=== PATIENT | male | born 1940 | race Hispanic/Latino ===

== ENCOUNTER 2017-04-07 17:49 | Inpatient (IN) | payer MEDICARE ==
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
[2017-04-07 19:34] LABS: BASO # 0.1 K/uL (0.0-0.2); BASO % 0.7 % (0.0-2.0); EOS # 0.1 K/uL (0.0-0.7); EOS % 0.6 % (0.0-4.0); HEMATOCRIT 38.4 % (35.0-51.0); LYMPH # 0.8 K/uL (1.0-4.3); LYMPH % 7.1 % (20.0-40.0); MEAN CELL VOLUME 90.6 fL (80.0-94.0); MEAN CORPUSCULAR HEMOGLOBIN 30.3 pg (27.0-31.0); MEAN CORPUSCULAR HGB CONC 33.4 g/dL (33.0-37.0); MEAN PLATELET VOLUME 8.7 fL (7.2-11.7); MONO # 1.9 K/uL (0.0-0.8); MONO % 17.4 % (0.0-10.0); PLATELET COUNT 285 K/uL (130-400); RED CELL DISTRIBUTION WIDTH 13.1 % (11.5-14.5); WHITE BLOOD COUNT 10.9 K/uL (4.8-10.8)
[2017-04-07] MEDS ORDERED: Midazolam 5 MG/5 ML VIAL IVP STA (19:40)
[2017-04-07 19:41] LABS: INR 1.2
[2017-04-07 19:46] LABS: ALB/GLOB RATIO 1.2 (1.0-2.1); CALCIUM 8.8 mg/dl (8.6-10.4); MAGNESIUM 1.4 mg/dL (1.6-2.3); PHOSPHOROUS 2.8 mg/dL (2.5-4.5); POTASSIUM 3.5 mmol/L (3.6-5.2)
[2017-04-07 19:57] LABS: TROPONIN I 0.042 ng/mL (0.00-0.120)
[2017-04-07] MEDS ORDERED: Midazolam 2 MG/2 ML VIAL ONE (20:02)
[2017-04-07 20:17] LABS: NEUTROPHIL 83 % (50-75); TOTAL CELLS COUNTED 100
--- NOTE | 2017-04-07 20:46 | CT ---
EXAM: CT Head Without Intravenous Contrast EXAM DATE/TIME: Exam ordered 04/07/2017 7:09 PM CLINICAL HISTORY: 77 years old, male; Signs and symptoms; Altered mental status/memory loss; Confusion or disorientation TECHNIQUE: Axial computed tomography images of the head/brain without intravenous contrast. All CT scans at this facility use one or more dose reduction techniques, viz.: automated exposure control; ma/kV adjustment per patient size (including targeted exams where dose is matched to indication; i.e. head); or iterative reconstruction technique. Coronal and sagittal reformatted images were created and reviewed. COMPARISON: No relevant prior studies available. FINDINGS: Brain: Low density is noted within the periventricular white matter extending into the newman radiata and centrum semiovale bilaterally. Calcification is seen in the left basal ganglia. There is mild cortical atrophy. A 2.8 mm low density focus noted within the anterior limb of the right internal capsule is noted. No hemorrhage. Ventricles: Unremarkable. No ventriculomegaly. Bones/joints: Unremarkable. No acute fracture. Soft tissues: Unremarkable. Sinuses: Unremarkable as visualized. No acute sinusitis. Mastoid air cells: Unremarkable as visualized. No mastoid effusion. IMPRESSION: 1. A 2.8 mm low density focus in the anterior limb of the right internal capsule could represent an lacunar infarct of uncertain age. 2. Chronic microvascular ischemic change noted within the deep white matter
[2017-04-08] MEDS ORDERED: Midazolam 5 MG/5 ML VIAL IVP STA (00:30)
[2017-04-08] MEDS ORDERED: Midazolam 2 MG/2 ML VIAL ONE (00:39)
[2017-04-08] MEDS ORDERED: Midazolam 2 MG/2 ML VIAL IVP ONE (01:56)
[2017-04-08] MEDS ORDERED: Metoprolol 1 mg/ml Inj IVP ONE (05:17)
[2017-04-08 06:39] LABS: TROPONIN I 0.049 ng/mL (0.00-0.120)
--- NOTE | 2017-04-08 08:37 | RAD ---
HISTORY: altered COMPARISON: Chest x-ray performed 04/08/12 TECHNIQUE: Chest, one view. FINDINGS: Examination limited by habitus and patient obliquity. LUNGS: Increased interstitial markings may be chronic. Please note that chest x-ray has limited sensitivity for the detection of pulmonary masses. PLEURA: No significant pleural effusion identified. No definite pneumothorax . CARDIOVASCULAR: Median sternotomy wires. Heart size appears within normal limits. Ectatic aorta. Atherosclerotic calcifications. OSSEOUS STRUCTURES: Degenerative changes. VISUALIZED UPPER ABDOMEN: Unremarkable. OTHER FINDINGS: None. IMPRESSION: Increased interstitial markings may be chronic. Median sternotomy wires. Ectatic aorta. Atherosclerotic calcifications.
[2017-04-08 09:55] LABS: CALCIUM 8.9 mg/dl (8.6-10.4); POTASSIUM 3.8 mmol/L (3.6-5.2)
[2017-04-08 10:15] LABS: HEMATOCRIT 39.3 % (35.0-51.0); MEAN CELL VOLUME 90.5 fL (80.0-94.0); MEAN CORPUSCULAR HGB CONC 33.2 g/dL (33.0-37.0); MEAN PLATELET VOLUME 7.9 fL (7.2-11.7); WHITE BLOOD COUNT 11.2 K/uL (4.8-10.8)
--- NOTE | 2017-04-08 11:15 | CP.PCM.HP ---
History of Present Illness - History of Present Illness History of Present Illness: pt admited for chest pain palpitation and dementia s/p coronary by pass Present on Admission - Present on Admission Any Indicators Present on Admission: No Review of Systems - Review of Systems Systems not reviewed;Unavailable: Acuity of Condition - Constitutional Constitutional: As Per HPI - EENT Eyes: As Per HPI Ears: As Per HPI Nose/Mouth/Throat: As Per HPI - Cardiovascular Cardiovascular: Chest Pain at Rest, Dyspnea on Exertion, Palpitations Additional comments: gradygulathee ht beats - Respiratory Respiratory: Dyspnea on Exertion - Gastrointestinal Gastrointestinal: As Per HPI - Genitourinary Genitourinary: As Per HPI - Reproductive: Male Reproductive:Male: As Per HPI - Musculoskeletal Musculoskeletal: As Per HPI - Integumentary Integumentary: As Per HPI - Psychiatric Psychiatric: As Per HPI - Endocrine Endocrine: As Per HPI - Hematologic/Lymphatic Hematologic: As Per HPI Past Patient History - Past Medical History & Family History Past Medical History?: Yes - Past Social History Smoking Status: Heavy Smoker > 10 Cigarettes Daily - CARDIAC Hx Cardiac Disorders: Yes Hx Hypertension: Yes - PULMONARY Hx Respiratory Disorders: No - NEUROLOGICAL Hx Neurological Disorder: No - HEENT Hx HEENT Problems: No - RENAL Hx Chronic Kidney Disease: No - ENDOCRINE/METABOLIC Hx Endocrine Disorders: No - HEMATOLOGICAL/ONCOLOGICAL Hx Blood Disorders: No - INTEGUMENTARY Hx Dermatological Problems: No - MUSCULOSKELETAL/RHEUMATOLOGICAL Hx Musculoskeletal Disorders: No Hx Falls: No - GASTROINTESTINAL Hx Gastrointestinal Disorders: No - GENITOURINARY/GYNECOLOGICAL Hx Genitourinary Disorders: No - PSYCHIATRIC Hx Psychophysiologic Disorder: No Hx Substance Use: No - SURGICAL HISTORY Hx Surgeries: Yes Hx Open Heart Surgery: Yes (30 years ago) - ANESTHESIA Hx Anesthesia: Yes Hx Anesthesia Reactions: No Hx Malignant Hyperthermia: No Has any member of the family had a problem w/ anesthesia?: No Meds Allergies/Adverse Reactions: Allergies Allergy/AdvReac Type Severity Reaction Status Date / Time No Known Allergies Allergy Unverified 04/07/17 18:07 Physical Exam - Constitutional Appears: Non-toxic - Head Exam Head Exam: ATRAUMATIC - Eye Exam Eye Exam: Normal appearance Pupil Exam: PERRL - ENT Exam ENT Exam: Mucous Membranes Moist - Neck Exam Neck exam: Positive for: Full Rom - Respiratory Exam Respiratory Exam: Decreased Breath Sounds - Cardiovascular Exam Cardiovascular Exam: Irregular Rhythm - GI/Abdominal Exam GI & Abdominal Exam: Normal Bowel Sounds Additional comments: scar of surgery - Rectal Exam Rectal Exam: Deferred - Exam Exam: NORMAL INSPECTION - Extremities Exam Extremities exam: Positive for: normal inspection Results - Vital Signs Recent Vital Signs: Last Vital Signs Temp 97.4 F L 04/08/17 08:00 Pulse 92 H 04/08/17 09:04 Resp 25 H 04/08/17 09:04 BP 160/98 H 04/08/17 09:04 Pulse Ox 96 04/08/17 09:04 - Labs Result Diagrams: 04/08/17 10:10 04/08/17 06:04 Labs: Laboratory Results - last 24 hr 04/07/17 04/07/17 04/07/17 19:30 19:30 19:30 WBC 10.9 H RBC 4.24 L Hgb 12.8 Hct 38.4 MCV 90.6 MCH 30.3 MCHC 33.4 RDW 13.1 Plt Count 285 MPV 8.7 Neut % (Auto) 74.2 Lymph % (Auto) 7.1 L [place] % (Auto) 17.4 H Eos % (Auto) 0.6 Baso % (Auto) 0.7 Neut # 8.1 H Lymph # 0.8 L [place] # 1.9 H Eos # 0.1 Baso # 0.1 Neutrophils % (Manual) 83 H Lymphocytes % (Manual) 5 L Monocytes % (Manual) 12 H Platelet Estimate Normal RBC Morphology Normal PT 13.5 H INR 1.2 APTT 30 Sodium 136 Potassium 3.5 L Chloride 100 Carbon Dioxide 22 Anion Gap 18 BUN 35 H Creatinine 1.5 Est GFR ( Amer) 55 Est GFR (Non-Af Amer) 45 Random Glucose 161 H Calcium 8.8 Phosphorus 2.8 Magnesium 1.4 L Total Bilirubin 1.0 AST 22 ALT 39 Alkaline Phosphatase 78 Total Creatine Kinase 183 H CK-MB (Mass) 3.53 H Troponin I 0.0420 NT-Pro-B Natriuret Pep Total Protein 7.0 Albumin 3.8 Globulin 3.2 Albumin/Globulin Ratio 1.2 04/08/17 04/08/17 04/08/17 06:04 06:04 10:10 WBC 11.2 H RBC 4.35 L Hgb 13.0 Hct 39.3 MCV 90.5 MCH 30.0 MCHC 33.2 RDW 13.0 Plt Count 290 MPV 7.9 Neut % (Auto) Lymph % (Auto) Pickens % (Auto) Eos % (Auto) Baso % (Auto) Neut # Lymph # Pickens # Eos # Baso # Neutrophils % (Manual) Lymphocytes % (Manual) Monocytes % (Manual) Platelet Estimate RBC Morphology PT INR APTT Sodium 138 Potassium 3.8 Chloride 102 Carbon Dioxide 22 Anion Gap 19 BUN 35 H Creatinine 1.4 Est GFR ( Amer) 59 Est GFR (Non-Af Amer) 49 Random Glucose 138 H Calcium 8.9 Phosphorus Magnesium Total Bilirubin AST ALT Alkaline Phosphatase Total Creatine Kinase 183 H CK-MB (Mass) 4.54 H Troponin I 0.0490 NT-Pro-B Natriuret Pep 4130 H Total Protein Albumin Globulin Albumin/Globulin Ratio Assessment & Plan - Assessment and Plan (Free Text) Assessment: chest pain at fibrilation dementia a/pcad by pass Plan: as per orders - Date & Time Date: 04/08/17 Time: 11:18
[2017-04-08 14:41] LABS: TROPONIN I 0.039 ng/mL (0.00-0.120)
[2017-04-08] MEDS: Enoxaparin 60 mg Syringe SC SCH (21:56)
--- NOTE | 2017-04-08 22:09 | CON ---
CARDIOLOGY CONSULTATION HISTORY OF PRESENT ILLNESS: The patient is 77 years old male who has a history of coronary artery disease, status post coronary artery bypass surgery, who was brought in because of palpitation and rapid atrial fibrillation. 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 According to Dr. Cardenas, the history and physical, the patient has a history of dementia. The most recent admission for this patient was in 2013 with the diagnosis of dysphagia. Social history, past medical history and review of systems are unobtainable or indicate at this time except for the patient has history of coronary artery bypass surgery. MEDICATIONS: Aldactone 25 mg twice a day, Coreg 12.5 mg twice a day, Lasix 20 mg intravenously once a day, vitamin B complex 1 tablet daily. REVIEW OF SYSTEMS: No report of ventricular tachycardia while the patient arrived here. No reported hypertension. PHYSICAL EXAMINATION: GENERAL: The patient is an elderly male, who is confused and at times restless and uncooperative. VITAL SIGNS: Blood pressure 120/74, heart rate 82, temperature 97.9, respirations 24. HEENT: Normocephalic. CHEST: Poor air entry bilaterally. A mid sternotomy scar is noted. HEART: S1 and S2 regular. ABDOMEN: Soft. EXTREMITIES: No edema. LABORATORY DATA: SMA-7: Sodium 138, potassium 3.8, chloride 102, CO2 of 22, glucose 138, BUN 35, creatinine 1.4. Three sets of troponins are not in the elevated range. ProBNP is 4130. INR is 1.2, PTT is 30. Hemoglobin and hematocrit 13 and 39.3, white count and platelet count 11.2 and 290,[address] Head CT scan without contrast: 2.8 mm low-density focus in the anterior limb of the right internal capsule. Could represent a lacunar infarct of uncertain age. Chronic microvascular ischemic changes within the deep white matter. EKG revealed atrial fibrillation at rate of 93, right bundle-branch block. ASSESSMENT: 1. Altered mental status. 2. Coronary artery disease, status post coronary artery bypass surgery. 3. Atrial fibrillation. It is not clear if it is a new onset or a chronic one. 4. Normal EKG with evidence of right bundle-branch block. 5. Rule out cerebrovascular accident. RECOMMENDATIONS: Continue Aldactone at 25 mg twice a day, Coreg 12.5 mg twice a day. Obtain TSH level, a bedside echocardiogram and start therapeutic Lovenox therapy. Consider brain MRI. Eugene Chavez MD
[2017-04-09 07:17] LABS: FREE T4 2.08 ng/dL (0.78-2.19)
[2017-04-09 07:31] LABS: THYROID STIMULATING HORMONE 0.44 mIU/L (0.46-4.68)
[2017-04-09] MEDS: Multivitamin Vitamin B Complex (Nephro-Vite) Tab PO SCH (08:01)
--- NOTE | 2017-04-09 09:58 | CP.PCM.PN ---
Subjective - Date & Time of Evaluation Date of Evaluation: 04/09/17 Time of Evaluation: 09:55 - Subjective Subjective: c/o of alot of chest pain has also cough today confused Objective - Vital Signs/Intake and Output Vital Signs (last 24 hours): Temp Pulse Resp BP Pulse Ox 97.9 F 66 21 104/58 L 95 04/09/17 08:00 04/09/17 08:00 04/09/17 08:00 04/09/17 08:35 04/09/17 08:00 Intake and Output: 04/09/17 04/09/17 06:59 18:59 Intake Total 320 180 Output Total 600 Balance -280 180 - Medications Medications: Current Medications Aspirin (Ecotrin) 81 mg PO DAILY [facility] Carvedilol (Coreg) 12.5 mg PO BID [facility] Last Admin: 04/08/17 17:22 Dose: 12.5 mg Enoxaparin Sodium (Lovenox) 60 mg SC Q12 [facility] Last Admin: 04/08/17 21:56 Dose: 60 mg Furosemide (Lasix) 20 mg IVP DAILY [facility] Last Admin: 04/08/17 11:58 Dose: 20 mg Spironolactone (Aldactone) 25 mg PO BID [facility] Last Admin: 04/08/17 17:22 Dose: 25 mg Vitamin B Complex/Vit C/Folic Acid (Nephro-James) 1 tab PO 0800 [facility] Last Admin: 04/09/17 08:01 Dose: 1 tab - Labs Labs: 04/08/17 10:10 04/08/17 06:04 PT 13.5 SECONDS (9.7-12.2) H 04/07/17 19:30 INR 1.2 04/07/17 19:30 APTT 30 SECONDS (21-34) 04/07/17 19:30 - Constitutional Appears: In Acute Distress - Head Exam Head Exam: ATRAUMATIC - Eye Exam Eye Exam: Conjunctival injection - ENT Exam ENT Exam: Mucous Membranes Dry - Neck Exam Neck Exam: Normal Inspection - Respiratory Exam Respiratory Exam: Rales - Cardiovascular Exam Cardiovascular Exam: Irregular Rhythm, +S1, +S2, +S4 - GI/Abdominal Exam GI & Abdominal Exam: Soft - Extremities Exam Extremities Exam: Normal Capillary Refill - Back Exam Back Exam: NORMAL INSPECTION - Neurological Exam Neurological Exam: Alert - Psychiatric Exam Psychiatric exam: Anxious - Skin Skin Exam: Normal Color Assessment and Plan - Assessment and Plan (Free Text) Assessment: at fibrilation chf cough chest pain dementia poor apetite Plan: as per orders
[2017-04-09] MEDS: Enoxaparin 60 mg Syringe SC SCH ×2 (10:43→22:30)
[2017-04-09] MEDS ORDERED: Albuterol 0.083% Inhal Sol (2.5 mg/3 mL) UD INH SCH (14:00)
[2017-04-09] MEDS ORDERED: Albuterol 0.083% Inhal Sol (2.5 mg/3 mL) UD INH PRN (14:00)
[2017-04-09] MEDS: Albuterol-Ipratrop 3 mg / 0.5 (3 ml) UD INH SCH ×2 (14:00→19:37)
[2017-04-09 14:42] LABS: ABG ALLEN TEST POS; ARTERIAL BLOOD HGB O2 SAT 88.8 % (95.0-98.0); CARBOXYHEMOGLOBIN 1.9 % (0.5-1.5); DRAW SITE RBA; HHB 8.2 % (0.0-5.0); METHEMOGLOBIN 1.1 % (0.0-3.0)
--- NOTE | 2017-04-09 21:01 | PN ---
DATE: SUBJECTIVE: The patient reports no chest pain. He ate his lunch today. PHYSICAL EXAMINATION: VITAL SIGNS: Blood pressure 138/75, heart rate 80, temperature 97.4, respirations 20. HEENT: Normocephalic. CHEST: Clear. HEART: S1, S2, regular. EXTREMITIES: No edema. LABORATORY DATA: Today's blood sugar is 217, proBNP is 4420. ASSESSMENT: 1. Altered mental status. 2. Coronary artery disease status post coronary artery bypass surgery. 3. Atrial fibrillation. 4. Rule out cerebrovascular accident. 5. Abnormal echocardiogram with evidence of right bundle-branch block. RECOMMENDATIONS: Continue Aldactone 25 mg twice a day, Coreg 12.5 mg twice a day, aspirin 81 mg once a day, Lasix 20 mg intravenously twice a day, subcutaneous Lovenox at 60 mg twice a day. I will repeat 12-lead EKG. I discussed the case with the medical team, and I recommended brain MRI once the patient is more cooperative. Eugene Chavez MD
--- NOTE | 2017-04-09 22:57 | CARD ---
APPROVED REPORT EKG Measurement Heart [id number] <Conclusion> Atrial fibrillation Left axis deviation Right bundle branch block Abnormal ECG
[2017-04-10] MEDS: Albuterol-Ipratrop 3 mg / 0.5 (3 ml) UD INH SCH ×4 (02:03→19:55)
[2017-04-10] MEDS: Multivitamin Vitamin B Complex (Nephro-Vite) Tab PO SCH (07:56)
[2017-04-10] MEDS: Enoxaparin 60 mg Syringe SC SCH ×2 (10:29→22:05)
--- NOTE | 2017-04-10 10:34 | CP.PCM.PN ---
Subjective - Date & Time of Evaluation Date of Evaluation: 04/10/17 Time of Evaluation: 10:29 - Subjective Subjective: pt confused denied bad chest pain today lindy is beter Objective - Vital Signs/Intake and Output Vital Signs (last 24 hours): Temp Pulse Resp BP Pulse Ox 98.0 F 83 20 99/62 L 97 04/10/17 09:06 04/10/17 09:06 04/10/17 09:06 04/10/17 09:06 04/10/17 09:06 Intake and Output: 04/10/17 04/10/17 06:59 18:59 Intake Total 120 Balance 120 - Medications Medications: Current Medications Albuterol/Ipratropium (Duoneb 3 Mg/0.5 Mg (3 Ml) Ud) 3 ml INH RQ6 [facility] Last Admin: 04/10/17 09:00 Dose: Not Given Aspirin (Ecotrin) 81 mg PO DAILY [facility] Last Admin: 04/09/17 10:42 Dose: 81 mg Carvedilol (Coreg) 12.5 mg PO BID [facility] Last Admin: 04/09/17 18:44 Dose: 12.5 mg Enoxaparin Sodium (Lovenox) 60 mg SC Q12 [facility] Last Admin: 04/09/17 22:30 Dose: 60 mg Furosemide (Lasix) 20 mg IVP DAILY [facility] Last Admin: 04/09/17 10:42 Dose: 20 mg Spironolactone (Aldactone) 25 mg PO BID [facility] Last Admin: 04/09/17 18:44 Dose: 25 mg Vitamin B Complex/Vit C/Folic Acid (Nephro-James) 1 tab PO 0800 [facility] Last Admin: 04/10/17 07:56 Dose: 1 tab - Labs Labs: 04/08/17 10:10 04/08/17 06:04 PT 13.5 SECONDS (9.7-12.2) H 04/07/17 19:30 INR 1.2 04/07/17 19:30 APTT 30 SECONDS (21-34) 04/07/17 19:30 - Constitutional Appears: Non-toxic - Head Exam Head Exam: ATRAUMATIC - Eye Exam Eye Exam: Normal appearance Pupil Exam: NORMAL ACCOMODATION - ENT Exam ENT Exam: Mucous Membranes Moist - Neck Exam Neck Exam: Full ROM - Respiratory Exam Respiratory Exam: Decreased Breath Sounds - Cardiovascular Exam Cardiovascular Exam: Irregular Rhythm, +S1, +S2, +S4 - GI/Abdominal Exam GI & Abdominal Exam: Normal Bowel Sounds - Rectal Exam Rectal Exam: NORMAL INSPECTION - Exam Exam: NORMAL INSPECTION - Extremities Exam Extremities Exam: Normal Inspection - Back Exam Back Exam: NORMAL INSPECTION - Neurological Exam Neurological Exam: Alert - Psychiatric Exam Psychiatric exam: Normal Affect - Skin Skin Exam: Normal Color Assessment and Plan - Assessment and Plan (Free Text) Assessment: ac cardiac arrythmia chf s/pchest pain dementia Plan: cont qas per orders
[2017-04-10] MEDS ORDERED: Acetylcysteine 20% Inhal Soln (4ml) INH ONE (13:00)
[2017-04-10] MEDS ORDERED: (Novolin R) Insulin Human Regular 100 units/ml vial SC ONE (13:30)
--- NOTE | 2017-04-10 16:35 | PN ---
DATE: FOLLOWUP SUBJECTIVE: I did try to reach to the patient's sisterRina at [phone]. The was able to answer and told me that his is outside in a store. The patient's [id number] who answered me could not give me information about Mr. Kumari and he asked me to call at a later time to speak to the patient's sister. The patient is still in one-to-one watch. He is in sinus rhythm. Mildly short of breath. PHYSICAL EXAMINATION: VITAL SIGNS: Blood pressure 150/78, heart rate 83, temperature 98, respirations 20. HEENT: Normocephalic. CHEST: Bilateral rhonchi. HEART: S1 and S2 regular. EXTREMITIES: No edema. LABORATORY DATA: Today's blood sugar is 211 and 382. TSH level yesterday was 0.44. ASSESSMENT: 1. Paroxysmal atrial fibrillation. 2. Altered mental status. 3. Coronary artery disease, status post coronary artery bypass surgery. 4. Uncontrolled diabetes mellitus. RECOMMENDATIONS: Continue Aldactone 25 mg twice a day, Coreg 12.5 mg twice a day, Lasix 20 mg intravenously once a day, therapeutic subcutaneous Lovenox 60 mg twice a day. Awaiting echocardiography study. I will repeat another chest x-ray and attempt to reach the patient's sister at a later time today. Eugene Chavez MD
[2017-04-10] MEDS: (Novolin R) Insulin Human Regular 100 units/ml vial SC SCH ×2 (17:15→21:51)
--- NOTE | 2017-04-10 18:14 | RAD ---
HISTORY: SOB COMPARISON: Comparison is made to 04/07/2017 FINDINGS: LUNGS: Interval improvement in the previously seen patchy opacities at the right lung. PLEURA: No significant pleural effusion identified, no pneumothorax apparent. CARDIOVASCULAR: Normal. OSSEOUS STRUCTURES: No significant abnormalities. VISUALIZED UPPER ABDOMEN: Normal. OTHER FINDINGS: None. IMPRESSION: Interval improvement in the right lung since the previous exam.
[2017-04-11] MEDS: Albuterol-Ipratrop 3 mg / 0.5 (3 ml) UD INH SCH ×5 (01:56→20:34)
[2017-04-11 08:14] LABS: CALCIUM 9.4 mg/dl (8.6-10.4); POTASSIUM 3.8 mmol/L (3.6-5.2)
[2017-04-11] MEDS: (Novolin R) Insulin Human Regular 100 units/ml vial SC SCH ×4 (08:48→22:00)
[2017-04-11] MEDS: Enoxaparin 60 mg Syringe SC SCH (10:52)
[2017-04-11] MEDS: Multivitamin Vitamin B Complex (Nephro-Vite) Tab PO SCH (10:52)
--- NOTE | 2017-04-11 12:49 | CP.PCM.CON ---
History of Present Illness - History of Present Illness History of Present Illness: Reason for consultation: Shortness of breath Jose Kumari is a 77 y/o M with a PMHx of bypass, a-fib, dementia and s/p coronary bypass that presented with chest pain. Pulmonology was consulted for increased shortness of breath. Patient was seen and examined at bedside. Patient is poor historian and appears confused. Patient is coughing and voice is hoarse when he tries to speak. Patient is on 4L nc. Per nursing cough has been productive. Patient responded that he has a hx of smoking but could not further elaborate. Past Patient History - Past Medical History & Family History Past Medical History?: Yes - Past Social History Smoking Status: Heavy Smoker > 10 Cigarettes Daily - CARDIAC Hx Cardiac Disorders: (CABG) Hx Hypertension: Yes - PULMONARY Hx Respiratory Disorders: No - NEUROLOGICAL Hx Neurological Disorder: No - HEENT Hx HEENT Problems: No - RENAL Hx Chronic Kidney Disease: No - ENDOCRINE/METABOLIC Hx Endocrine Disorders: No - HEMATOLOGICAL/ONCOLOGICAL Hx Blood Disorders: No - INTEGUMENTARY Hx Dermatological Problems: No - MUSCULOSKELETAL/RHEUMATOLOGICAL Hx Musculoskeletal Disorders: No Hx Falls: No - GASTROINTESTINAL Hx Gastrointestinal Disorders: No - GENITOURINARY/GYNECOLOGICAL Hx Genitourinary Disorders: No - PSYCHIATRIC Hx Psychophysiologic Disorder: No Hx Substance Use: No - SURGICAL HISTORY Hx Surgeries: Yes Hx Open Heart Surgery: Yes (30 years ago) - ANESTHESIA Hx Anesthesia: Yes Hx Anesthesia Reactions: No Hx Malignant Hyperthermia: No Has any member of the family had a problem w/ anesthesia?: No Meds Allergies/Adverse Reactions: Allergies Allergy/AdvReac Type Severity Reaction Status Date / Time No Known Allergies Allergy Unverified 04/07/17 18:07 - Medications Medications: Current Medications Albuterol/Ipratropium (Duoneb 3 Mg/0.5 Mg (3 Ml) Ud) 3 ml INH RQ6 [facility] Last Admin: 04/11/17 08:11 Dose: 3 ml Aspirin (Ecotrin) 81 mg PO DAILY [facility] Last Admin: 04/11/17 10:51 Dose: 81 mg Carvedilol (Coreg) 12.5 mg PO BID [facility] Last Admin: 04/11/17 10:51 Dose: 12.5 mg Enoxaparin Sodium (Lovenox) 60 mg SC Q12 [facility] Last Admin: 04/11/17 10:52 Dose: 60 mg Furosemide (Lasix) 20 mg IVP DAILY [facility] Last Admin: 04/11/17 12:14 Dose: 20 mg Insulin Human Regular (Novolin R) 0 unit SC ACHS [facility] PRN Reason: Protocol Last Admin: 04/11/17 12:09 Dose: 8 unit Spironolactone (Aldactone) 25 mg PO BID [facility] Last Admin: 04/11/17 10:51 Dose: 25 mg Vitamin B Complex/Vit C/Folic Acid (Nephro-James) 1 tab PO 0800 [facility] Last Admin: 04/11/17 10:52 Dose: 1 tab Physical Exam - Head Exam Head Exam: ATRAUMATIC, NORMOCEPHALIC - Eye Exam Eye Exam: Normal appearance - ENT Exam ENT Exam: Mucous Membranes Moist - Neck Exam Neck exam: Positive for: Normal Inspection - Respiratory Exam Respiratory Exam: Decreased Breath Sounds - Cardiovascular Exam Cardiovascular Exam: REGULAR RHYTHM - GI/Abdominal Exam GI & Abdominal Exam: Normal Bowel Sounds, Soft - Extremities Exam Extremities exam: Positive for: normal inspection - Neurological Exam Neurological exam: Alert, Oriented x3 Results - Vital Signs Recent Vital Signs: Last Vital Signs Temp 97.5 F L 04/11/17 08:00 Pulse 69 04/11/17 12:20 Resp 20 04/11/17 08:00 BP 118/70 04/11/17 12:20 Pulse Ox 93 L 04/11/17 12:20 - Labs Result Diagrams: 04/12/17 07:41 04/12/17 07:41 Labs: Laboratory Results - last 24 hr 04/10/17 04/10/17 04/11/17 16:36 21:22 06:45 Sodium Potassium Chloride Carbon Dioxide Anion Gap BUN Creatinine Est GFR ( Amer) Est GFR (Non-Af Amer) POC Glucose (mg/dL) 221 H 192 H 168 H Random Glucose Hemoglobin A1c Calcium NT-Pro-B Natriuret Pep 04/11/17 04/11/17 04/11/17 07:19 07:19 11:48 Sodium 144 Potassium 3.8 Chloride 104 Carbon Dioxide 28 Anion Gap 16 BUN 80 H Creatinine 2.1 H Est GFR ( Amer) 37 Est GFR (Non-Af Amer) 31 POC Glucose (mg/dL) 357 H Random Glucose 199 H Hemoglobin A1c 6.8 H Calcium 9.4 NT-Pro-B Natriuret Pep 2740 H Assessment & Plan (1) COPD exacerbation Status: Acute Comment: nebulizer treatment. Add steroids. spiriva. BiPAP if needed. Follow -up ABG (2) Atrial fibrillation Status: Acute
--- NOTE | 2017-04-11 14:26 | CT ---
PROCEDURE: CT HEAD WITHOUT CONTRAST. HISTORY: Altered mental status COMPARISON: 04/07/2017. TECHNIQUE: Axial computed tomography images were obtained through the head/brain without intravenous contrast. Radiation dose: Total exam DLP = 1719.94 mGy-cm. This CT exam was performed using one or more of the following dose reduction techniques: Automated exposure control, adjustment of the mA and/or kV according to patient size, and/or use of iterative reconstruction technique. FINDINGS: HEMORRHAGE: No intracranial hemorrhage. BRAIN: There are mild chronic microangiopathic changes. There is no mass, mass effect or abnormal extra-axial fluid collection.There are coarse atherosclerotic calcifications in the cavernous carotid arteries. VENTRICLES: There is moderate age-related global parenchymal volume loss and proportionate enlargement of the ventricles and cortical sulci appear. CALVARIUM: The skull base and calvarium are normal. PARANASAL SINUSES: There is moderate mucosal thickening in the left ethmoid air cells. The remaining included paranasal sinuses are predominantly clear. MASTOID AIR CELLS: Unremarkable as visualized. No inflammatory changes. OTHER FINDINGS: None. IMPRESSION: No acute intracranial abnormality. Mild chronic microangiopathic changes and moderate age-related global parenchymal volume loss.
--- NOTE | 2017-04-11 17:25 | CP.PCM.PN ---
Subjective - Date & Time of Evaluation Date of Evaluation: 04/11/17 Time of Evaluation: 17:22 - Subjective Subjective: persistant cough and sob sleepy confused Objective - Vital Signs/Intake and Output Vital Signs (last 24 hours): Temp Pulse Resp BP Pulse Ox 97.7 F 65 18 102/66 96 04/11/17 15:04 04/11/17 15:04 04/11/17 15:04 04/11/17 15:04 04/11/17 15:04 Intake and Output: 04/11/17 04/11/17 06:59 18:59 Intake Total 480 600 Balance 480 600 - Medications Medications: Current Medications Albuterol/Ipratropium (Duoneb 3 Mg/0.5 Mg (3 Ml) Ud) 3 ml INH RQ6 [facility] Last Admin: 04/11/17 14:24 Dose: 3 ml Apixaban (Eliquis) 2.5 mg PO BID [facility] Aspirin (Ecotrin) 81 mg PO DAILY [facility] Last Admin: 04/11/17 10:51 Dose: 81 mg Carvedilol (Coreg) 12.5 mg PO BID [facility] Last Admin: 04/11/17 10:51 Dose: 12.5 mg Insulin Human Regular (Novolin R) 0 unit SC ACHS [facility] PRN Reason: Protocol Last Admin: 04/11/17 12:09 Dose: 8 unit Vitamin B Complex/Vit C/Folic Acid (Nephro-James) 1 tab PO 0800 [facility] Last Admin: 04/11/17 10:52 Dose: 1 tab - Labs Labs: 04/08/17 10:10 04/11/17 07:19 PT 13.5 SECONDS (9.7-12.2) H 04/07/17 19:30 INR 1.2 04/07/17 19:30 APTT 30 SECONDS (21-34) 04/07/17 19:30 - Constitutional Appears: Non-toxic - Head Exam Head Exam: NORMAL INSPECTION - Eye Exam Eye Exam: Normal appearance Pupil Exam: NORMAL ACCOMODATION - ENT Exam ENT Exam: Mucous Membranes Moist - Neck Exam Neck Exam: Full ROM - Respiratory Exam Respiratory Exam: Decreased Breath Sounds - Cardiovascular Exam Cardiovascular Exam: Irregular Rhythm - GI/Abdominal Exam GI & Abdominal Exam: Normal Bowel Sounds - Exam Exam: NORMAL INSPECTION External exam: NORMAL EXTERNAL EXAM - Back Exam Back Exam: NORMAL INSPECTION - Neurological Exam Neurological Exam: Alert - Psychiatric Exam Psychiatric exam: Flat Affect - Skin Skin Exam: Pallor Assessment and Plan - Assessment and Plan (Free Text) Assessment: ams dementia persistant cough chf cardiac arrythmia Plan: as per orders
--- NOTE | 2017-04-11 19:13 | CARD ---
APPROVED REPORT EKG Measurement Heart [id number] <Conclusion> Sinus rhythm with premature supraventricular complexes Left axis deviation Right bundle branch block Possible Lateral infarct, age undetermined Abnormal ECG
--- NOTE | 2017-04-11 19:23 | CT ---
EXAM: CT Chest Without Intravenous Contrast EXAM DATE/TIME: 04/11/2017 5:21 PM CLINICAL HISTORY: 77 years old, male; Signs and symptoms; Cough; Symptoms not specified; Prior surgery; Additional info: Persistant cough and SOB TECHNIQUE: Axial computed tomography images of the chest without intravenous contrast. All CT scans at this facility use one or more dose reduction techniques, viz.: automated exposure control; ma/kV adjustment per patient size (including targeted exams where dose is matched to indication; i.e. head); or iterative reconstruction technique. Coronal and sagittal reformatted images were created and reviewed. COMPARISON: Prior images are not available for review. FINDINGS: Artifacts: Motion artifact degrades image quality. Lungs and pleural spaces: Trachea and main bronchi are patent. The lungs are hyperinflated. There is centrilobular emphysematous changes bilaterally. There is fibrosis and scarring at the lung bases. There is nodular scarring at the right apex. There is pleural thickening and scarring along the posterior lateral aspect of the right hemithorax. There is partial consolidation of the right lower lobe. There is less extensive airspace disease in the left lower lobe. There are no effusions. There is a surgical clip in the lateral left pleural space. Heart and vasculature: The heart is mildly enlarged. There are coronary artery calcifications. There is no pericardial effusion. Aorta and main pulmonary artery are normal in caliber. There are vascular calcifications. Mediastinum: There are multiple surgical clips in the mediastinum. The esophagus is unremarkable. There are shotty mediastinal nodes.[place]andelaria are not optimally evaluated without contrast material. Thyroid: Thyroid is incompletely imaged. Gland is heterogeneous. There is a heterogeneous solid-appearing right thyroid nodule. Bones/joints: Bony structures are osteopenic. There are degenerative changes. There is mild compression deformity T12. There is an old healed right seventh rib fracture. There is an old healed left first rib fracture. There are postsurgical changes of median sternotomy. Soft tissues: unremarkable Upper abdomen: There are no acute abnormalities in the visualized portion of the abdomen. Gallbladder is partially distended. Attenuation suggest gallstones.Pancreas is atrophic. IMPRESSION: Centrilobular emphysema with fibrotic changes at the lung bases and bilateral lower lobe airspace disease right greater than left, infiltrate and/or atelectasis; mild cardiomegaly and atherosclerotic disease;possible gallstones; limited evaluation of the thyroid with poorly defined nodule in the right, clinical correlation advised Additional findings as described above.
--- NOTE | 2017-04-11 22:40 | PN ---
SUBJECTIVE: I had a long discussion with the patient's sister on the phone. According to sister, the patient has 2 sons, but they are not involved with his care. 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 She also knows that he gets by himself. He has periods of confusion. The sister has assigned a young female person to take care of his food and apartment cleaning. According to sister, there was no history of stroke; however, the patient went in to confusional state at one point that remained for many days until he recovered. At this time, the patient is confused to place, slightly drowsy, and no reported atrial fibrillation or ventricular tachycardia. PHYSICAL EXAMINATION: VITAL SIGNS: Blood pressure 102/66, heart rate 65, temperature 97.7, respirations 18. HEENT: Normocephalic. CHEST: Bilateral rhonchi. HEART: S1 and S2 regular. EXTREMITIES: No edema. LABORATORY DATA: Today's BUN and creatinine are 80 and 2.1 respectively, glucose 199. Initial BUN and creatinine were 35 and 1.5. I did review the echocardiographic study, which revealed a borderline ejection fraction with septal hypokinesis and mildly dilated right ventricle. The official report is still pending. ASSESSMENT: 1. Paroxysmal atrial fibrillation. 2. Coronary artery disease status post coronary artery bypass surgery 7 years ago. 3. Altered mental status. 4. Acute renal insufficiency. RECOMMENDATION: I did ask for a repeat head CT scan without contrast, which revealed no acute intracranial abnormality, mild chronic micro angiopathic changes and moderate age-related global parenchymal volume loss. Discontinue subcutaneous Lovenox and start Eliquis at 2.5 mg daily. Discontinue Aldactone. Continue Coreg 12.5 mg twice a day. I did discuss the placement of the patient with the patient's and I recommended an attempt at skilled nursing placement and she will work on it; however, the future resuscitation status will be discussed between the patient and his sister. Eugene Chavez MD
[2017-04-11] MEDS: Dextrose 5%/0.45% NS 1,000 ML IV SCH (22:51)
--- NOTE | 2017-04-12 00:23 | CARD ---
APPROVED REPORT EXAM: Two-dimensional and M-mode echocardiogram with Doppler and color Doppler. Other Information Quality : LimitedRhythm : INDICATION Atrial Fibrillation Chest Pain Palpitations Surgery/Intervention CABD DIMENSIONS IVSd1.0 (0.7-1.1cm)LVDd4.4 (3.9-5.9cm) LVOT Diameter2.6 (1.8-2.4cm)PWd1.1 (0.7-1.1cm) LVDs3.3 (2.5-4.0cm)FS (%) 25.8 % LVEF (%)50.9 (>50%) M-Mode DIMENSIONS Left Atrium (MM)3.42 (2.5-4.0cm)Aortic Root3.80 (2.2-3.7cm) Aortic Cusp Exc.0.79 (1.5-2.0cm) Mitral Valve MV E Zsiftpik71.2cm/sMV A Juohgrei00.4cm/sE/A ratio0.9 TDI E/Lateral E'0.0E/Medial E'0.0 Tricuspid Valve TR Peak [id number]/sTR Peak Gr.[id number] LEFT VENTRICLE The left ventricle is normal size. There is mild concentric left ventricular hypertrophy. Left ventricle systolic function is normal. The Ejection Fraction is 60-65%. There is normal LV segmental wall motion. Transmitral Doppler flow pattern is Grade I-abnormal relaxation pattern. There is no ventricular septal defect visualized. RIGHT VENTRICLE The right ventricle is normal size. The right ventricular systolic function is normal. ATRIA The left atrium is mildly dilated. The right atrium size is normal. AORTIC VALVE The aortic valve is not well visualized. No aortic regurgitation is present. There is no aortic valvular stenosis. MITRAL VALVE The mitral valve is not well visualized. Cannot rule out prolapse Cannot rule out mitral regurgitation TRICUSPID VALVE The tricuspid valve is normal in structure. There is mild tricuspid regurgitation. Right ventricular systolic pressure is estimated at 30-40 mmHg. There is mild pulmonary hypertension. PULMONIC VALVE The pulmonic valve is not well visualized. The pulmonic valve is not well visualized. GREAT VESSELS The aortic root is normal in size. The IVC is dilated. PERICARDIAL EFFUSION There is no pericardial effusion. <Conclusion> Suboptimal with a poor acoustic window. There is mild concentric left ventricular hypertrophy. Left ventricle systolic function is normal. The Ejection Fraction is 60-65%. Transmitral Doppler flow pattern is Grade I-abnormal relaxation pattern. There is mild pulmonary hypertension.
[2017-04-12] MEDS: Albuterol-Ipratrop 3 mg / 0.5 (3 ml) UD INH SCH ×4 (01:23→19:53)
[2017-04-12 07:53] LABS: BASO % 0.1 % (0.0-2.0); EOS # 0.1 K/uL (0.0-0.7); EOS % 0.9 % (0.0-4.0); LYMPH % 7.3 % (20.0-40.0); MEAN CELL VOLUME 91.3 fL (80.0-94.0); MEAN CORPUSCULAR HEMOGLOBIN 30.8 pg (27.0-31.0); MEAN CORPUSCULAR HGB CONC 33.7 g/dL (33.0-37.0); MEAN PLATELET VOLUME 8.7 fL (7.2-11.7); MONO # 1.3 K/uL (0.0-0.8); MONO % 9.8 % (0.0-10.0); PLATELET COUNT 410 K/uL (130-400); RED CELL DISTRIBUTION WIDTH 13.5 % (11.5-14.5); WHITE BLOOD COUNT 13.8 K/uL (4.8-10.8)
[2017-04-12 08:36] LABS: ALB/GLOB RATIO 0.8 (1.0-2.1); BILIRUBIN,TOTAL 0.5 mg/dL (0.2-1.3); CALCIUM 9.5 mg/dl (8.6-10.4); POTASSIUM 3.9 mmol/L (3.6-5.2); TOTAL PROTEIN 7.4 g/dL (6.3-8.3)
[2017-04-12] MEDS: (Novolin R) Insulin Human Regular 100 units/ml vial SC SCH ×4 (08:41→22:15)
[2017-04-12] MEDS: Multivitamin Vitamin B Complex (Nephro-Vite) Tab PO SCH (08:41)
[2017-04-12 09:26] LABS: NEUTROPHIL 75 % (50-75); TOTAL CELLS COUNTED 100
[2017-04-12] MEDS: Dextrose 5%/0.45% NS 1,000 ML IV SCH (09:58)
[2017-04-12] MEDS: Bacitracin Ointment 30 GM TUBE TOP SCH (10:04)
--- NOTE | 2017-04-12 10:33 | CP.PCM.PN ---
Subjective - Date & Time of Evaluation Date of Evaluation: 04/12/17 Time of Evaluation: 10:31 - Subjective Subjective: pt has cough sob kofi apetite was agitated last night Objective - Vital Signs/Intake and Output Vital Signs (last 24 hours): Temp Pulse Resp BP Pulse Ox 98.1 F 64 20 115/73 97 04/12/17 08:00 04/12/17 09:49 04/12/17 08:00 04/12/17 09:50 04/12/17 08:00 - Medications Medications: Current Medications Albuterol/Ipratropium (Duoneb 3 Mg/0.5 Mg (3 Ml) Ud) 3 ml INH RQ6 [facility] Last Admin: 04/12/17 07:40 Dose: 3 ml Apixaban (Eliquis) 2.5 mg PO BID [facility] Last Admin: 04/12/17 09:50 Dose: 2.5 mg Aspirin (Ecotrin) 81 mg PO DAILY [facility] Last Admin: 04/12/17 09:50 Dose: 81 mg Bacitracin (Bacitracin) 0 gm TOP DAILY [facility] Last Admin: 04/12/17 10:04 Dose: 1 applic Carvedilol (Coreg) 12.5 mg PO BID [facility] Last Admin: 04/12/17 09:50 Dose: 12.5 mg Dextrose/Sodium Chloride (Dextrose 5%/0.45% Ns 1000 Ml) 1,000 mls @ 60 mls/hr IV .[id number] [facility] Last Admin: 04/12/17 09:58 Dose: 60 mls/hr Ceftriaxone Sodium 1 gm/ (Sodium Chloride) 100 mls @ 100 mls/hr IVPB DAILY [facility] Insulin Human Regular (Novolin R) 0 unit SC ACHS [facility] PRN Reason: Protocol Last Admin: 04/12/17 08:41 Dose: 2 unit Vitamin B Complex/Vit C/Folic Acid (Nephro-James) 1 tab PO 0800 [facility] Last Admin: 04/12/17 08:41 Dose: 1 tab - Labs Labs: 04/12/17 07:41 04/12/17 07:41 PT 13.5 SECONDS (9.7-12.2) H 04/07/17 19:30 INR 1.2 04/07/17 19:30 APTT 30 SECONDS (21-34) 04/07/17 19:30 - Constitutional Appears: Non-toxic - Head Exam Head Exam: NORMAL INSPECTION - Eye Exam Eye Exam: Normal appearance Pupil Exam: NORMAL ACCOMODATION - ENT Exam ENT Exam: Mucous Membranes Moist - Neck Exam Neck Exam: Full ROM - Respiratory Exam Respiratory Exam: Decreased Breath Sounds, Rales, Respiratory Distress Additional comments: cough - Cardiovascular Exam Cardiovascular Exam: REGULAR RHYTHM, +S1, +S2, +S4 - GI/Abdominal Exam GI & Abdominal Exam: Normal Bowel Sounds - Rectal Exam Rectal Exam: NORMAL INSPECTION - Extremities Exam Extremities Exam: Normal Inspection - Back Exam Back Exam: NORMAL INSPECTION - Neurological Exam Neurological Exam: Alert - Psychiatric Exam Psychiatric exam: Agitated - Skin Skin Exam: Normal Color Assessment and Plan - Assessment and Plan (Free Text) Assessment: at fib improved ac pnumonia sob dementia agitation poor apeytite generalised weekness Plan: as per orders
--- NOTE | 2017-04-12 17:39 | CP.PCM.PN ---
Subjective - Date & Time of Evaluation Date of Evaluation: 04/12/17 Time of Evaluation: 12:20 - Subjective Subjective: patient seen and examined Still short of breath and productive cough Afebrile CAT scan of the chest noted On IV antibiotics Afebrile Objective - Vital Signs/Intake and Output Vital Signs (last 24 hours): Temp Pulse Resp BP Pulse Ox 98.1 F 97 H 20 144/84 99 04/12/17 15:31 04/12/17 15:31 04/12/17 15:31 04/12/17 15:31 04/12/17 15:31 Intake and Output: 04/12/17 04/12/17 06:59 18:59 Intake Total 670 Balance 670 - Medications Medications: Current Medications Albuterol/Ipratropium (Duoneb 3 Mg/0.5 Mg (3 Ml) Ud) 3 ml INH RQ6 [facility] Last Admin: 04/12/17 13:40 Dose: 3 ml Apixaban (Eliquis) 2.5 mg PO BID [facility] Last Admin: 04/12/17 09:50 Dose: 2.5 mg Aspirin (Ecotrin) 81 mg PO DAILY [facility] Last Admin: 04/12/17 09:50 Dose: 81 mg Bacitracin (Bacitracin) 0 gm TOP DAILY [facility] Last Admin: 04/12/17 10:04 Dose: 1 applic Carvedilol (Coreg) 12.5 mg PO BID [facility] Last Admin: 04/12/17 09:50 Dose: 12.5 mg Dextrose/Sodium Chloride (Dextrose 5%/0.45% Ns 1000 Ml) 1,000 mls @ 60 mls/hr IV .[id number] [facility] Last Admin: 04/12/17 09:58 Dose: 60 mls/hr Ceftriaxone Sodium 1 gm/ (Sodium Chloride) 100 mls @ 100 mls/hr IVPB DAILY [facility] Last Admin: 04/12/17 11:14 Dose: 100 mls/hr Azithromycin 500 mg/ Sodium (Chloride) 250 mls @ 250 mls/hr IVPB DAILY [facility] Insulin Human Regular (Novolin R) 0 unit SC ACHS [facility] PRN Reason: Protocol Last Admin: 04/12/17 11:58 Dose: 3 unit Methylprednisolone (Solu-Medrol) 40 mg IV Q8 [facility] Tiotropium [place] (Spiriva) 18 mcg INH RQ24 [facility] Tiotropium [place] (Spiriva Inhalation Handihaler Device) 1 inhaler INH ONCE ONE Stop: 04/12/17 17:32 Vitamin B Complex/Vit C/Folic Acid (Nephro-James) 1 tab PO 0800 [facility] Last Admin: 04/12/17 08:41 Dose: 1 tab - Labs Labs: 04/12/17 07:41 04/12/17 07:41 PT 13.5 SECONDS (9.7-12.2) H 04/07/17 19:30 INR 1.2 04/07/17 19:30 APTT 30 SECONDS (21-34) 04/07/17 19:30 - Head Exam Head Exam: ATRAUMATIC, NORMOCEPHALIC - Eye Exam Eye Exam: Normal appearance - ENT Exam ENT Exam: Mucous Membranes Moist - Neck Exam Neck Exam: Full ROM - Respiratory Exam Respiratory Exam: Decreased Breath Sounds - Cardiovascular Exam Cardiovascular Exam: Irregular Rhythm - GI/Abdominal Exam GI & Abdominal Exam: Soft, Normal Bowel Sounds - Extremities Exam Extremities Exam: Full ROM, Normal Inspection - Neurological Exam Neurological Exam: Awake Assessment and Plan (1) COPD exacerbation Assessment & Plan: Continue nebulizer treatment, IV steroids and antibiotics Follow-up ABG BiPAP as needed Will need home oxygen Status: Acute (2) Atrial fibrillation Status: Acute
--- NOTE | 2017-04-12 18:07 | PN ---
SUBJECTIVE: Patient is sleepy, but arousable. He is confused. He denies any chest pain. PHYSICAL EXAMINATION: VITAL SIGNS: Blood pressure 115/73, heart rate 64, temperature 98.1, respiration 20. HEENT: Normocephalic. CHEST: Bilateral rhonchi. HEART: S1 and S2 regular. EXTREMITIES: No edema. LABORATORY DATA: Chest CT scan without contrast revealed centrilobular emphysema with fibrotic changes at the lung bases and bilateral lower lobe airspace disease, right greater than left. Infiltrate and/or atelectasis. Mild cardiomegaly and atherosclerotic disease, possible gallstones. ASSESSMENT: 1. Paroxysmal atrial fibrillation. 2. Coronary artery disease status post coronary artery bypass surgery 7 years ago. 3. Centrilobular emphysema with fibrotic changes at the lung bases and bilateral lower lobe airspace disease. 4. Altered mental status. 5. Acute renal insufficiency. Today's BUN and creatinine are 90 and 2.0 respectively. RECOMMENDATIONS: Continue current IV Rocephin 1 g daily, Coreg at 12.5 mg twice a day, D5 half-normal saline at 60 mL an hour, aspirin 81 mg once a day, Eliquis at 2.5 mg twice a day. Consider septic workup including blood cultures and urine culture. Eugene Chavez MD
--- NOTE | 2017-04-12 20:09 | CON ---
DATE: 04/12/2017 CHIEF COMPLAINT AND REASON FOR CONSULTATION: Patient is referred for evaluation by Dr. Cardenas. The patient has dementia, has been agitated, confused, and combative. HISTORY OF PRESENT ILLNESS: This is the case of a 77-year-old male who came to the emergency room complaining of chest pain, patient was diagnosed with new-onset atrial fibrillation. Patient is also having complicated chest palpitation. Patient has been noted to be having periods of confusion and agitation. Today when seen, he was very confused and complaining of some shortness of breath and was also complaining of pain in his right upper extremity. Patient is a very poor historian, collateral information taken from the chart. He lives alone, but could not give much information stating that he is short of breath. PAST PSYCHIATRIC HISTORY: Has history of dementia. PAST MEDICAL HISTORY: Hypertension. DRUG AND ALCOHOL HISTORY: Denies any. ALLERGIES: Patient has no known allergies. PSYCHOSOCIAL HISTORY: The patient lives alone. He is retired. CURRENT MEDICATIONS: Include bacitracin, Coreg, DuoNeb, Eliquis, Ecotrin, vitamin B complex, insulin. REVIEW OF SYSTEMS: GENERAL: Patient is alert, but very weak, still appears to have confusion, oriented only to person, not to place and time, seen with staff providing care. Patient is not agitated. Patient is currently 1:1. SKIN: No diaphoresis. HEENT: No headache or dizziness. NECK: Supple. RESPIRATORY: Has [id number] dyspnea. CARDIOVASCULAR: No chest pain. Patient also has persistent cough. GASTROINTESTINAL: Appetite is poor. EXTREMITIES: The patient is moving extremities. MUSCULOSKELETAL: Feels weak. NEUROLOGICAL: Alert, appears to have confusion. GENITOURINARY: Denies dysuria. PHYSICAL EXAMINATION: VITAL SIGNS: Temperature is 98.1, pulse is 64, blood pressure 115/73, respirations 20, oxygen saturation is 97% on room air. MENTAL STATUS EXAMINATION: An elderly male who looks frail, chronically ill, seen in his room, oriented x1. Mood is dysphoric. Affect is restricted. Speech is slow. Thought process confused. Thought content, no overt psychosis. No suicidal or homicidal ideation. Attention and memory seemed to be limited. Insight and judgment limited. Impulse control is fair at this time. LABORATORY DATA: Review of his labs, patient's creatinine is 2.1 on admission. A1c is 6.8. His B12 is greater than 1000. His free T4 is 2.08. Hemoglobin A1c is stated as 6.8. Liver function tests are within normal limits. Review of his other lab results, CAT scan of the head showed chronic microvascular ischemic changes, 2.8-mm low-density focus in the anterior limb of the right internal capsule. This may represent a lacunar infarct of certain age. Patient also had a chest CAT scan that showed the following result: It showed centrilobular emphysema with fibrotic changes at the lung bases. It shows mild cardiomegaly and possible gallstone, atherosclerotic heart disease. IMPRESSION: Delirium, metabolic encephalopathy, superimposed with dementia, sudden onset of mood changes, possible pneumonia, new-onset atrial fibrillation and congestive heart failure. PLAN AND RECOMMENDATIONS: Patient is seen and meds reviewed. If the patient will stay in control,hold off any p.r.n. Ativan for now. Patient has labored breathing. We are going to keep 1:1 for now for close monitoring. Case discussed with Dr. Cardenas. Also, I will try to contact the family if the patient has a living will. Ector Vines MD MTDD
[2017-04-12] MEDS: Azithromycin 500 MG in Sodium Chloride 0.9% 250 ML IVPB SCH (21:18)
[2017-04-12] MEDS: MethylPREDNISolone 40 mg Vial IV SCH (21:28)
[2017-04-12 22:54] LABS: RBC URINE 1 /hpf (0-3); URINE BILIRUBIN NEGATIVE (NEGATIVE); URINE BLOOD NEGATIVE (NEGATIVE); URINE COLOR Yellow (YELLOW); URINE GLUCOSE (UA) 1+ mg/dL (Normal); URINE HYALINE CAST 0-2 /lpf (0-2); URINE KETONE NEGATIVE (NEGATIVE); URINE LEUKOCYTE ESTERASE NEG Leu/uL (Negative); URINE PROTEIN 2+ mg/dL (NEGATIVE); URINE UROBILINOGEN NORMAL mg/dL (0.2-1.0); WBC URINE 1 /hpf (0-5)
[2017-04-13] MEDS: Albuterol-Ipratrop 3 mg / 0.5 (3 ml) UD INH SCH ×4 (01:16→19:18)
[2017-04-13] MEDS: Dextrose 5%/0.45% NS 1,000 ML IV SCH (04:24)
[2017-04-13] MEDS: MethylPREDNISolone 40 mg Vial IV SCH (06:11)
[2017-04-13] MEDS: (Novolin R) Insulin Human Regular 100 units/ml vial SC SCH ×4 (08:18→22:32)
[2017-04-13] MEDS: Multivitamin Vitamin B Complex (Nephro-Vite) Tab PO SCH (08:34)
[2017-04-13] MEDS: Bacitracin Ointment 30 GM TUBE TOP SCH (10:36)
[2017-04-13] MEDS: Azithromycin 500 MG in Sodium Chloride 0.9% 250 ML IVPB SCH (10:38)
--- NOTE | 2017-04-13 11:37 | CP.PCM.PN ---
Subjective - Date & Time of Evaluation Date of Evaluation: 04/13/17 Time of Evaluation: 11:34 - Subjective Subjective: pt still coughing alot sob confused able to eate today b s hi Objective - Vital Signs/Intake and Output Vital Signs (last 24 hours): Temp Pulse Resp BP Pulse Ox 98.5 F 82 19 150/81 97 04/13/17 08:03 04/13/17 08:03 04/13/17 08:03 04/13/17 10:35 04/13/17 08:03 Intake and Output: 04/13/17 04/13/17 06:59 18:59 Intake Total 1400 Balance 1400 - Medications Medications: Current Medications Albuterol/Ipratropium (Duoneb 3 Mg/0.5 Mg (3 Ml) Ud) 3 ml INH RQ6 [facility] Last Admin: 04/13/17 07:00 Dose: 3 ml Apixaban (Eliquis) 2.5 mg PO BID [facility] Last Admin: 04/13/17 10:35 Dose: 2.5 mg Aspirin (Ecotrin) 81 mg PO DAILY [facility] Last Admin: 04/13/17 10:35 Dose: 81 mg Bacitracin (Bacitracin) 0 gm TOP DAILY [facility] Last Admin: 04/12/17 10:04 Dose: 1 applic Carvedilol (Coreg) 12.5 mg PO BID [facility] Last Admin: 04/13/17 10:35 Dose: 12.5 mg Ceftriaxone Sodium 1 gm/ (Sodium Chloride) 100 mls @ 100 mls/hr IVPB DAILY [facility] Last Admin: 04/13/17 10:38 Dose: 100 mls/hr Azithromycin 500 mg/ Sodium (Chloride) 250 mls @ 250 mls/hr IVPB DAILY [facility] Last Admin: 04/13/17 10:38 Dose: 250 mls/hr Insulin Human Regular (Novolin R) 0 unit SC ACHS [facility] PRN Reason: Protocol Last Admin: 04/13/17 08:18 Dose: 6 unit Tiotropium [place] (Spiriva) 18 mcg INH RQ24 [facility] Vitamin B Complex/Vit C/Folic Acid (Nephro-James) 1 tab PO 0800 [facility] Last Admin: 04/12/17 08:41 Dose: 1 tab - Labs Labs: 04/12/17 07:41 04/12/17 07:41 PT 13.5 SECONDS (9.7-12.2) H 04/07/17 19:30 INR 1.2 04/07/17 19:30 APTT 30 SECONDS (21-34) 04/07/17 19:30 - Constitutional Appears: In Acute Distress - Head Exam Head Exam: NORMOCEPHALIC - Eye Exam Eye Exam: Conjunctival injection Pupil Exam: NORMAL ACCOMODATION - ENT Exam ENT Exam: Mucous Membranes Dry - Neck Exam Neck Exam: Full ROM - Respiratory Exam Respiratory Exam: Decreased Breath Sounds, Rales - Cardiovascular Exam Cardiovascular Exam: REGULAR RHYTHM - GI/Abdominal Exam GI & Abdominal Exam: Normal Bowel Sounds - Extremities Exam Extremities Exam: Normal Inspection - Back Exam Back Exam: NORMAL INSPECTION - Neurological Exam Neurological Exam: Alert - Psychiatric Exam Psychiatric exam: Anxious - Skin Skin Exam: Pallor Assessment and Plan - Assessment and Plan (Free Text) Assessment: ac brochitis pnumonitis chf dementia cont treatment
--- NOTE | 2017-04-13 12:17 | CP.PCM.PN ---
Subjective - Date & Time of Evaluation Date of Evaluation: 04/13/17 - Subjective Subjective: Patient seen and examined at bedside. Patient confused and not oriented. Patient answers to name. Patient still SOB, requiring oxygen and continues to have a productive cough. A febrile. Objective - Vital Signs/Intake and Output Vital Signs (last 24 hours): Temp Pulse Resp BP Pulse Ox 98.5 F 82 19 150/81 97 04/13/17 08:03 04/13/17 08:03 04/13/17 08:03 04/13/17 10:35 04/13/17 08:03 Intake and Output: 04/13/17 04/13/17 06:59 18:59 Intake Total 1400 Balance 1400 - Medications Medications: Current Medications Albuterol/Ipratropium (Duoneb 3 Mg/0.5 Mg (3 Ml) Ud) 3 ml INH RQ6 [facility] Last Admin: 04/13/17 07:00 Dose: 3 ml Apixaban (Eliquis) 2.5 mg PO BID [facility] Last Admin: 04/13/17 10:35 Dose: 2.5 mg Aspirin (Ecotrin) 81 mg PO DAILY [facility] Last Admin: 04/13/17 10:35 Dose: 81 mg Bacitracin (Bacitracin) 0 gm TOP DAILY [facility] Last Admin: 04/12/17 10:04 Dose: 1 applic Carvedilol (Coreg) 12.5 mg PO BID [facility] Last Admin: 04/13/17 10:35 Dose: 12.5 mg Ceftriaxone Sodium 1 gm/ (Sodium Chloride) 100 mls @ 100 mls/hr IVPB DAILY [facility] Last Admin: 04/13/17 10:38 Dose: 100 mls/hr Azithromycin 500 mg/ Sodium (Chloride) 250 mls @ 250 mls/hr IVPB DAILY [facility] Last Admin: 04/13/17 10:38 Dose: 250 mls/hr Insulin Human Regular (Novolin R) 0 unit SC ACHS [facility] PRN Reason: Protocol Last Admin: 04/13/17 08:18 Dose: 6 unit Tiotropium [place] (Spiriva) 18 mcg INH RQ24 [facility] Vitamin B Complex/Vit C/Folic Acid (Nephro-James) 1 tab PO 0800 [facility] Last Admin: 04/12/17 08:41 Dose: 1 tab - Labs Labs: 04/12/17 07:41 04/12/17 07:41 PT 13.5 SECONDS (9.7-12.2) H 04/07/17 19:30 INR 1.2 04/07/17 19:30 APTT 30 SECONDS (21-34) 04/07/17 19:30 Assessment and Plan (1) COPD exacerbation Assessment & Plan: continue nebulizer, IV steroids, antibiotics BIPAP as needed Home O2 Status: Acute (2) Atrial fibrillation Status: Acute
[2017-04-13] MEDS: Tiotropium 18 mcg Cap For Inhalation INH SCH (13:34)
--- NOTE | 2017-04-13 16:11 | CP.PCM.PN ---
Subjective - Date & Time of Evaluation Date of Evaluation: 04/13/17 Time of Evaluation: 16:07 - Subjective Subjective: DISCUSSED WITH DR. ROSALES IV ABX DURATION IN ORDER TO PREPARE FOR D/C TO [facility]--- PER DR. ROSALES, PT TO RECEIVE 5 MORE DAYS OF IV ZITHROMAX 500 MG IV DAILY X5 MORE DAYS ( START ON 04/14/17 AND LAST DOSE TO BE GIVEN ON 04/18/17). PT LIKELY FOR D/C TOMORROW TO [facility] WITH HEPLOCK IN PLACE FOR IV ABX. PT TO RECEIVE DOSE OF IV ZITHRO HERE BEFORE HE IS D/C. NO FURTHER ORDERS. JAN SNYDER MADE AWARE OF PLAN. Objective - Vital Signs/Intake and Output Vital Signs (last 24 hours): Temp Pulse Resp BP Pulse Ox 98.5 F 82 19 150/81 97 04/13/17 08:03 04/13/17 08:03 04/13/17 08:03 04/13/17 10:35 04/13/17 08:03 Intake and Output: 04/13/17 04/13/17 06:59 18:59 Intake Total 1400 530 Balance 1400 530 - Medications Medications: Current Medications Albuterol/Ipratropium (Duoneb 3 Mg/0.5 Mg (3 Ml) Ud) 3 ml INH RQ6 [facility] Last Admin: 04/13/17 13:30 Dose: 3 ml Apixaban (Eliquis) 2.5 mg PO BID [facility] Last Admin: 04/13/17 10:35 Dose: 2.5 mg Aspirin (Ecotrin) 81 mg PO DAILY [facility] Last Admin: 04/13/17 10:35 Dose: 81 mg Bacitracin (Bacitracin) 0 gm TOP DAILY [facility] Last Admin: 04/13/17 10:36 Dose: 1 applic Carvedilol (Coreg) 12.5 mg PO BID [facility] Last Admin: 04/13/17 10:35 Dose: 12.5 mg Ceftriaxone Sodium 1 gm/ (Sodium Chloride) 100 mls @ 100 mls/hr IVPB DAILY [facility] Last Admin: 04/13/17 10:38 Dose: 100 mls/hr Azithromycin 500 mg/ Sodium (Chloride) 250 mls @ 250 mls/hr IVPB DAILY [facility] Last Admin: 04/13/17 10:38 Dose: 250 mls/hr Insulin Human Regular (Novolin R) 0 unit SC ACHS [facility] PRN Reason: Protocol Last Admin: 04/13/17 12:34 Dose: 10 unit Tiotropium [place] (Spiriva) 18 mcg INH RQ24 [facility] Last Admin: 04/13/17 13:34 Dose: 18 mcg Vitamin B Complex/Vit C/Folic Acid (Nephro-James) 1 tab PO 0800 [facility] Last Admin: 04/13/17 08:34 Dose: 1 tab - Labs Labs: 04/12/17 07:41 04/12/17 07:41 PT 13.5 SECONDS (9.7-12.2) H 04/07/17 19:30 INR 1.2 04/07/17 19:30 APTT 30 SECONDS (21-34) 04/07/17 19:30
[2017-04-14] MEDS: Albuterol-Ipratrop 3 mg / 0.5 (3 ml) UD INH SCH ×3 (01:21→13:39)
--- NOTE | 2017-04-14 07:11 | PN ---
SUBJECTIVE: The patient is still confused. The patient's director product management is at the bedside; she does not give any relevant information about his medical history and does not know who is the patient's chief commercial officer. In fact, the patient's director product management just found out today that the patient is in [facility]. She did attempt to find out where was he, but was not successful and apparently the patient's sister did not communicate to her that the patient was admitted to [facility]. PHYSICAL EXAMINATION: VITAL SIGNS: Blood pressure 162/90, heart rate 82, temperature 98.5, respirations 19. HEENT: Normocephalic. CHEST: Clear. HEART: S1 and S2 regular. EXTREMITIES: No edema. LABORATORY DATA: Today's blood sugars are 516 and 471. ASSESSMENT: 1. Coronary artery disease status post coronary artery bypass surgery, 7 years ago. 2. Paroxysmal atrial fibrillation. 3. Altered mental status. 4. Centrilobular emphysema with fibrotic changes at lung bases. 5. Acute renal insufficiency. RECOMMENDATION: Continue IV Rocephin and IV Zithromax. Continue Coreg 12.5 mg twice a day, aspirin 81 mg once a day, Eliquis at 2.5 mg twice a day, Spiriva 18 mcg inhalation daily. The patient will be transferred to subacute rehab. Eugene Chavez MD
--- NOTE | 2017-04-14 07:28 | PN ---
SUBJECTIVE: The patient is still confused. The patient's counseling services manager is at the bedside; she does not give any relevant information about his medical history and does not know who is the patient's trimmer tailer. In fact, the patient's counseling services manager just found out today that the patient is in [facility]. She did attempt to find out where was he, but was not successful and apparently the patient's sister did not communicate to her that the patient was admitted to [facility]. PHYSICAL EXAMINATION: VITAL SIGNS: Blood pressure 162/90, heart rate 82, temperature 98.5, respirations 19. HEENT: Normocephalic. CHEST: Clear. HEART: S1 and S2 regular. EXTREMITIES: No edema. LABORATORY DATA: Today's blood sugars are 516 and 471. ASSESSMENT: 1. Coronary artery disease status post coronary artery bypass surgery, 7 years ago. 2. Paroxysmal atrial fibrillation. 3. Altered mental status. 4. Centrilobular emphysema with fibrotic changes at lung bases. 5. Acute renal insufficiency. RECOMMENDATION: Continue IV Rocephin and IV Zithromax. Continue Coreg 12.5 mg twice a day, aspirin 81 mg once a day, Eliquis at 2.5 mg twice a day, Spiriva 18 mcg inhalation daily. The patient will be transferred to subacute rehab. Eugene Chavez MD
[2017-04-14] MEDS: Tiotropium 18 mcg Cap For Inhalation INH SCH (07:31)
[2017-04-14 08:07] LABS: CALCIUM 9.1 mg/dl (8.6-10.4); POTASSIUM 3.9 mmol/L (3.6-5.2)
[2017-04-14] MEDS: (Novolin R) Insulin Human Regular 100 units/ml vial SC SCH ×3 (08:30→17:44)
[2017-04-14] MEDS: Multivitamin Vitamin B Complex (Nephro-Vite) Tab PO SCH (08:50)
[2017-04-14] MEDS: Bacitracin Ointment 30 GM TUBE TOP SCH (09:20)
[2017-04-14] MEDS: Azithromycin 500 MG in Sodium Chloride 0.9% 250 ML IVPB SCH (10:48)
--- NOTE | 2017-04-14 13:17 | CARD ---
APPROVED REPORT EKG Measurement Heart [id number] <Conclusion> Sinus rhythm with sinus arrhythmia with 1st degree AV block Left axis deviation Right bundle branch block Possible Lateral infarct, age undetermined Abnormal ECG
--- NOTE | 2017-04-14 13:39 | CP.PCM.PN ---
Subjective - Date & Time of Evaluation Date of Evaluation: 04/14/17 Time of Evaluation: 08:00 - Subjective Subjective: the patient seen and examined Confused Still has productive cough Afebrile Objective - Vital Signs/Intake and Output Vital Signs (last 24 hours): Temp Pulse Resp BP Pulse Ox 98.0 F 74 20 133/77 90 L 04/14/17 07:50 04/14/17 07:50 04/14/17 07:50 04/14/17 09:20 04/14/17 07:50 Intake and Output: 04/14/17 04/14/17 06:59 18:59 Intake Total 120 Balance 120 - Medications Medications: Current Medications Albuterol/Ipratropium (Duoneb 3 Mg/0.5 Mg (3 Ml) Ud) 3 ml INH RQ6 [facility] Last Admin: 04/14/17 07:31 Dose: 3 ml Apixaban (Eliquis) 2.5 mg PO BID [facility] Last Admin: 04/14/17 09:20 Dose: 2.5 mg Aspirin (Ecotrin) 81 mg PO DAILY [facility] Last Admin: 04/14/17 09:20 Dose: 81 mg Bacitracin (Bacitracin) 0 gm TOP DAILY [facility] Last Admin: 04/14/17 09:20 Dose: 1 applic Carvedilol (Coreg) 12.5 mg PO BID [facility] Last Admin: 04/14/17 09:20 Dose: 12.5 mg Ceftriaxone Sodium 1 gm/ (Sodium Chloride) 100 mls @ 100 mls/hr IVPB DAILY [facility] Last Admin: 04/14/17 09:10 Dose: 100 mls/hr Azithromycin 500 mg/ Sodium (Chloride) 250 mls @ 250 mls/hr IVPB DAILY [facility] Last Admin: 04/14/17 10:48 Dose: 250 mls/hr Insulin Human Regular (Novolin R) 0 unit SC ACHS [facility] PRN Reason: Protocol Last Admin: 04/14/17 12:30 Dose: 4 unit Tiotropium [place] (Spiriva) 18 mcg INH RQ24 [facility] Last Admin: 04/14/17 07:31 Dose: 18 mcg Vitamin B Complex/Vit C/Folic Acid (Nephro-James) 1 tab PO 0800 [facility] Last Admin: 04/14/17 08:50 Dose: 1 tab - Labs Labs: 04/12/17 07:41 04/14/17 07:20 PT 13.5 SECONDS (9.7-12.2) H 04/07/17 19:30 INR 1.2 04/07/17 19:30 APTT 30 SECONDS (21-34) 04/07/17 19:30 - Constitutional Appears: No Acute Distress - Head Exam Head Exam: ATRAUMATIC, NORMOCEPHALIC - Eye Exam Eye Exam: EOMI - ENT Exam ENT Exam: Mucous Membranes Moist - Neck Exam Neck Exam: Normal Inspection - Respiratory Exam Respiratory Exam: Decreased Breath Sounds - Cardiovascular Exam Cardiovascular Exam: REGULAR RHYTHM - GI/Abdominal Exam GI & Abdominal Exam: Soft, Normal Bowel Sounds - Extremities Exam Extremities Exam: Normal Inspection Assessment and Plan (1) COPD exacerbation Assessment & Plan: Continue IV antibiotics Nebulizer treatment Add budesonide Status: Acute (2) Atrial fibrillation Status: Acute
--- NOTE | 2017-04-14 16:47 | CP.PCM.PN ---
Subjective - Date & Time of Evaluation Date of Evaluation: 04/14/17 Time of Evaluation: 04:00 - Subjective Subjective: less cough sleepy poor apetite no distress will go today to [facility] Objective - Vital Signs/Intake and Output Vital Signs (last 24 hours): Temp Pulse Resp BP Pulse Ox 98.0 F 74 20 133/77 90 L 04/14/17 07:50 04/14/17 07:50 04/14/17 07:50 04/14/17 09:20 04/14/17 07:50 Intake and Output: 04/14/17 04/14/17 06:59 18:59 Intake Total 820 Balance 820 - Medications Medications: Current Medications Apixaban (Eliquis) 2.5 mg PO BID [facility] Last Admin: 04/14/17 09:20 Dose: 2.5 mg Aspirin (Ecotrin) 81 mg PO DAILY [facility] Last Admin: 04/14/17 09:20 Dose: 81 mg Bacitracin (Bacitracin) 0 gm TOP DAILY [facility] Last Admin: 04/14/17 09:20 Dose: 1 applic Carvedilol (Coreg) 12.5 mg PO BID [facility] Last Admin: 04/14/17 09:20 Dose: 12.5 mg Ceftriaxone Sodium 1 gm/ (Sodium Chloride) 100 mls @ 100 mls/hr IVPB DAILY [facility] Last Admin: 04/14/17 09:10 Dose: 100 mls/hr Azithromycin 500 mg/ Sodium (Chloride) 250 mls @ 250 mls/hr IVPB DAILY [facility] Last Admin: 04/14/17 10:48 Dose: 250 mls/hr Insulin Glargine (Lantus) 6 unit SC HS [facility] Insulin Human Regular (Novolin R) 0 unit SC ACHS [facility] PRN Reason: Protocol Last Admin: 04/14/17 12:30 Dose: 4 unit Tiotropium [place] (Spiriva) 18 mcg INH RQ24 [facility] Last Admin: 04/14/17 07:31 Dose: 18 mcg Vitamin B Complex/Vit C/Folic Acid (Nephro-James) 1 tab PO 0800 [facility] Last Admin: 04/14/17 08:50 Dose: 1 tab - Labs Labs: 04/12/17 07:41 04/14/17 07:20 PT 13.5 SECONDS (9.7-12.2) H 04/07/17 19:30 INR 1.2 04/07/17 19:30 APTT 30 SECONDS (21-34) 04/07/17 19:30 - Constitutional Appears: Non-toxic - Head Exam Head Exam: NORMAL INSPECTION - Eye Exam Eye Exam: Normal appearance Pupil Exam: NORMAL ACCOMODATION - ENT Exam ENT Exam: Mucous Membranes Moist - Neck Exam Neck Exam: Full ROM - Respiratory Exam Respiratory Exam: Decreased Breath Sounds - Cardiovascular Exam Cardiovascular Exam: REGULAR RHYTHM - GI/Abdominal Exam GI & Abdominal Exam: Normal Bowel Sounds - Rectal Exam Rectal Exam: NORMAL INSPECTION - Extremities Exam Extremities Exam: Normal Inspection - Back Exam Back Exam: NORMAL INSPECTION - Neurological Exam Neurological Exam: Alert - Skin Skin Exam: Pallor Assessment and Plan - Assessment and Plan (Free Text) Assessment: adementia dmid bronchitis diastolic ht f generalised weekness s/p at fib Plan: cont as per orders d/c to [place]
--- NOTE | 2017-04-14 16:49 | PN ---
DATE: SUBJECTIVE: The patient is confused. He denies any chest pain. PHYSICAL EXAMINATION VITAL SIGNS: Blood pressure 133/77, heart rate 74, temperature 98, respirations 20. HEENT: Normocephalic. CHEST: Clear. HEART: S1 and S2 regular. EXTREMITIES: No edema. LABORATORY DATA: SMA-7: Sodium 143, potassium 3.9, chloride 108, CO2 of 29, glucose 189, BUN 67, and creatinine 1.5. ASSESSMENT: 1. Altered mental status. 2. Paroxysmal atrial fibrillation. 3. Improving prerenal azotemia. 4. Coronary artery disease, status post coronary artery bypass surgery. 5. Chronic obstructive pulmonary disease exacerbation. RECOMMENDATIONS: Continue IV Zithromax and IV Rocephin. Continue Coreg 12.5 mg twice a day, aspirin 81 mg once a day, Eliquis 2.5 mg twice a day. Eugene Chavez MD
[2017-04-14 17:08] VITALS: BP 143/89; PULSE 68; RESP 18; TEMP 98.1; O2SAT 94
--- NOTE | 2017-04-14 17:48 | CP.PCM.PN ---
Subjective - Date & Time of Evaluation Date of Evaluation: 04/14/17 Time of Evaluation: 11:00 - Subjective Subjective: awake, confused, no sobor acute distress. Objective - Vital Signs/Intake and Output Vital Signs (last 24 hours): Temp Pulse Resp BP Pulse Ox 98.1 F 68 18 143/89 94 L 04/14/17 15:25 04/14/17 15:25 04/14/17 15:25 04/14/17 15:25 04/14/17 15:25 Intake and Output: 04/14/17 04/14/17 06:59 18:59 Intake Total 820 Balance 820 - Medications Medications: Current Medications Apixaban (Eliquis) 2.5 mg PO BID [facility] Last Admin: 04/14/17 09:20 Dose: 2.5 mg Aspirin (Ecotrin) 81 mg PO DAILY [facility] Last Admin: 04/14/17 09:20 Dose: 81 mg Bacitracin (Bacitracin) 0 gm TOP DAILY [facility] Last Admin: 04/14/17 09:20 Dose: 1 applic Carvedilol (Coreg) 12.5 mg PO BID [facility] Last Admin: 04/14/17 09:20 Dose: 12.5 mg Ceftriaxone Sodium 1 gm/ (Sodium Chloride) 100 mls @ 100 mls/hr IVPB DAILY [facility] Last Admin: 04/14/17 09:10 Dose: 100 mls/hr Azithromycin 500 mg/ Sodium (Chloride) 250 mls @ 250 mls/hr IVPB DAILY [facility] Last Admin: 04/14/17 10:48 Dose: 250 mls/hr Insulin Glargine (Lantus) 6 unit SC HS [facility] Insulin Human Regular (Novolin R) 0 unit SC ACHS [facility] PRN Reason: Protocol Last Admin: 04/14/17 17:44 Dose: Not Given Tiotropium [place] (Spiriva) 18 mcg INH RQ24 [facility] Last Admin: 04/14/17 07:31 Dose: 18 mcg Vitamin B Complex/Vit C/Folic Acid (Nephro-James) 1 tab PO 0800 [facility] Last Admin: 04/14/17 08:50 Dose: 1 tab - Labs Labs: 04/12/17 07:41 04/14/17 07:20 PT 13.5 SECONDS (9.7-12.2) H 04/07/17 19:30 INR 1.2 04/07/17 19:30 APTT 30 SECONDS (21-34) 04/07/17 19:30 Assessment and Plan - Assessment and Plan (Free Text) Assessment: Patient is seen and examined. Awake, confused. No sob or chest pains. D/W DR Tsai and DR Barajas, plan to discharge to [facility] today. Advised to continue with IV antibiotics another 5 days more.
[2017-04-14] MEDS ORDERED: (Lantus) Insulin Glargine, Recombinant SC SCH (22:00)
== END 2017-04-14 18:13 | DRG 308 ==
LOC: C.ER 17:49 → C.9E 22:02 → C.9I 04-08 01:21 → C.6T 04-09 11:53 → C.5E 04-09 12:36 → C.6T 04-09 12:49
PROVIDERS: ADMIT Internal Medicine; ATTEND Internal Medicine
DX: I48.0 Paroxysmal atrial fibrillation (principal); G93.41 Metabolic encephalopathy; F05 Delirium due to known physiological condition; E11.65 Type 2 diabetes mellitus with hyperglycemia; I50.30 Unspecified diastolic (congestive) heart failure; J44.1 Chronic obstructive pulmonary disease with (acute) exacerbation; I11.0 Hypertensive heart disease with heart failure; I45.10 Unspecified right bundle-branch block; I25.10 Atherosclerotic heart disease of native coronary artery without angina pectoris; F03.90 Unspecified dementia, unspecified severity, without behavioral disturbance, psychotic disturbance, mood disturbance, and anxiety; J43.2 Centrilobular emphysema; N28.9 Disorder of kidney and ureter, unspecified; Z95.1 Presence of aortocoronary bypass graft